=== PATIENT | male | born 1970 | race African-American/Black ===

== ENCOUNTER 2020-06-28 09:40 | Emergency (ER) | payer MEDICARE, MEDICAID | END 2020-06-28 11:14 | disposition home or self-care (01) | LOC: ERS 09:40 | DX: S92.511A Displaced fracture of proximal phalanx of right lesser toe(s), initial encounter for closed fracture (principal); W22.8XXA Striking against or struck by other objects, initial encounter ==

== ENCOUNTER 2023-06-14 01:08 | Emergency (ER) | payer OTHER ==
[2023-06-14] MEDS ORDERED: Multivitamins, Adult 10 ML, Thiamine HCl 100 MG, Folic Acid 1 MG in Dextrose 5 %-0.45 %... IV SCH (01:30)
[2023-06-14 02:34] LABS: Acetaminophen Less than 10 mcg/mL (10.0-30.0); Alcohol 241.5 mg/dL (Less than 10); Salicylate Less than 8.0 mg/dL (15.0-30.0)
== END 2023-06-14 04:27 ==
LOC: ERS 01:08
DX: F10.129 Alcohol abuse with intoxication, unspecified (principal)
CPT/HCPCS: 36415; 80307; 96365; 96366; J3411; J7042

== ENCOUNTER 2023-06-14 15:30 | Emergency (ER) | payer OTHER ==
[2023-06-14] MEDS ORDERED: Ibuprofen 200 MG TAB ONE (16:09)
[2023-06-14 17:19] LABS: Influenza A by NAA Not Detected (NotDetected); Influenza B by NAA Not Detected (NotDetected); SARS-CoV-2 NAA Rapid Test Not Detected (NotDetected)
== END 2023-06-14 17:45 ==
LOC: ERS 15:30
DX: J02.9 Acute pharyngitis, unspecified (principal)
CPT/HCPCS: 0240U; 87081; 87430; 99283